=== PATIENT | male | born 1955 | race Caucasian/White ===

== ENCOUNTER 2023-02-04 09:04 | Inpatient (IN) ==
--- NOTE | 2023-01-14 10:08 | PAT Medication Instructions ---
Medication Instructions Date of Service January 14, 2023 Home Medications acetaminophen 650 mg tablet,extended release 650 mg PO QPM allopurinol 300 mg tablet 300 mg PO QAM ascorbic acid (vitamin C) 500 mg tablet (Vitamin C) 500 mg PO QAM cholecalciferol (vitamin D3) 25 mcg (1,000 unit) tablet (Vitamin D3) 100 mcg PO QAM clopidogrel 75 mg tablet 75 mg PO QAM coenzyme Q10 100 mg capsule (CoQ-10) 100 mg PO QAM hydrochlorothiazide 25 mg tablet 25 mg PO QAM metoprolol succinate 25 mg capsule sprinkle, ext. release 24 hr 25 mg PO QAM zinc 50 mg capsule 50 mg PO QAM psyllium husk 3.4 gram/5.4 gram oral powder (Metamucil) 1 tbsp PO QAM gabapentin 100 mg tablet 100 mg PO QPM indomethacin 75 mg capsule,extended release 50 mg PO UD PRN gout flare up lactobacillus combination no.4 3 billion cell capsule (Probiotic) 3,000 mmu cells PO QAM ASK your surgeon for instructions indomethacin 75 mg capsule,extended release 50 mg PO UD PRN gout flare up ASK your prescriber and surgeon clopidogrel 75 mg tablet 75 mg PO QAM STOP taking 2 weeks before surgery (or as soon as possible if surgery is within 2 weeks) coenzyme Q10 100 mg capsule (CoQ-10) 100 mg PO QAM DO NOT take the morning of surgery ascorbic acid (vitamin C) 500 mg tablet (Vitamin C) 500 mg PO QAM cholecalciferol (vitamin D3) 25 mcg (1,000 unit) tablet (Vitamin D3) 100 mcg PO QAM hydrochlorothiazide 25 mg tablet 25 mg PO QAM zinc 50 mg capsule 50 mg PO QAM psyllium husk 3.4 gram/5.4 gram oral powder (Metamucil) 1 tbsp PO QAM lactobacillus combination no.4 3 billion cell capsule (Probiotic) 3,000 mmu cells PO QAM Take morning of surgery With a small sip of water, OTHERWISE NOTHING TO EAT OR DRINK AFTER MIDNIGHT: allopurinol 300 mg tablet 300 mg PO QAM metoprolol succinate 25 mg capsule sprinkle, ext. release 24 hr 25 mg PO QAM Take evening before surgery acetaminophen 650 mg tablet,extended release 650 mg PO QPM gabapentin 100 mg tablet 100 mg PO QPM Other Notes If you have any questions please call us at [phone] or [phone] or [phone] or [phone]
--- NOTE | 2023-01-21 12:53 | Anesthesiology Consultation ---
Date of Service January 21, 2023 Assessment & Plan (1) Encounter for pre-operative examination: - awaiting surgeon ordered clearance. 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 Continue Plavix for minimum 6 months...cardiac clearance for possible back surgery. Patient is cleared for surgical intervention, but the problem is he has to stay on Plavix for minimum of 6 months due to his recent LAD stenting...would be cleared to stop Plavix 6-month levi, and needs to stay on aspirin 81 mg daily due to high risk of stent thrombosis...Return in about 1 year..." Chart Review Chart Review: Pending: Refer to Additional Notes / Consult section and Patient seen in Pre Admission Testing Teaching & Discussion Pre-Anesthesia Teaching/Discussion Notes: Instructed NPO after midnight before surgery, except medications with 15 cc of water. Medication instructions provided according to the PAT guidelines. History Surgery Operation Date: 02/04/23 07:45 Proposed Procedures p L2-S1 Decompression and Fusion - Vernon Montero DO Height/Weight Height: 5 ft 10 in Weight: 117.9 kg Allergies Allergy/AdvReac Type Severity Reaction Status Date / Time pravastatin AdvReac Unknown ARM PAIN Verified 01/14/23 08:29 Medications Home Medications Medication Instructions Recorded Confirmed Last Taken acetaminophen 650 mg 650 mg PO QPM 04/03/22 01/14/23 Unknown tablet,extended release allopurinol 300 mg tablet 300 mg PO QAM 04/03/22 01/14/23 Unknown ascorbic acid (vitamin C) 500 mg 500 mg PO QAM 04/03/22 01/14/23 Unknown tablet (Vitamin C) cholecalciferol (vitamin D3) 25 100 mcg PO QAM 04/03/22 01/14/23 Unknown mcg (1,000 unit) tablet (Vitamin D3) clopidogrel 75 mg tablet 75 mg PO QAM 04/03/22 01/14/23 Unknown coenzyme Q10 100 mg capsule 100 mg PO QAM 04/03/22 01/14/23 Unknown (CoQ-10) hydrochlorothiazide 25 mg tablet 25 mg PO QAM 04/03/22 01/14/23 Unknown metoprolol succinate 25 mg capsule 25 mg PO QAM 04/03/22 01/14/23 Unknown sprinkle, ext. release 24 hr zinc 50 mg capsule 50 mg PO QAM 04/03/22 01/14/23 Unknown psyllium husk 3.4 gram/5.4 gram 1 tbsp PO QAM 07/01/22 01/14/23 Unknown oral powder (Metamucil) gabapentin 100 mg tablet 100 mg PO QPM 01/14/23 01/14/23 Unknown indomethacin 75 mg 50 mg PO UD PRN gout flare up 01/14/23 01/14/23 Unknown capsule,extended release lactobacillus combination no.4 3 3,000 mmu cells PO QAM 01/14/23 01/14/23 Unknown billion cell capsule (Probiotic) Past Medical History Medical History (Updated 01/21/23 @ 12:58 by Tanika Roberts PA-C) Body aches after vaccination UPPER BODY/ARMS/SINCE RECEIVING COVID VACCINATIONS. PT HAS DISCUSSED THIS WITH PCP. CAD (coronary artery disease) 02/08/16, cardiac cath, 1 stent-[place] [employer]; [facility] cardiac [facility], 1 MARK stent-[place] [employer]nergy XD to LAD; [facility]u Dr. Cavazos, [facility] GERD (gastroesophageal reflux disease) rare History of COVID-23 JUL 2022 History of gout Hypertension controlled, stable per pt Myocardial Infarction 02/08/16, cardiac cath, 1 stent-[place] [employer]; [facility], cardiac cath, 1 MARK stent-[place] [employer] XD to LAD; [facility] f[facility]u Dr. Cavazos, [facility] Neck pain chronic, denies change or worsening sx intervention discussed/possible for future mild rom limitation on occ Shoulder pain, left chronic, denies change or worsening Sleep apnea MILD>NO DEVICE Spinal stenosis Patient denies h/o stroke, seizures, heart failure, DM, blood clots or blood transfusions. Exercise / Class Metabolic Activity II 4-5 Yardwork/Stairs/Walk up hill (denies chest discomfort or shortness of breath with 1 FOS) Past Family History Family History Other No family history of adverse response to anesthesia Past Surgical History Surgical History History of cardiac cath 02/08/16, cardiac cath, 1 stent-[place] [employer]; [facility] 11[facility]21, cardiac cath, 1 stent-[place] [employer] XD; [facility] f/u Dr. Cavazos, [facility] 12/2021>"NO STENT NEEDED" History of heart artery stent 02/08/16, cardiac cath, 1 stent-[place] [employer] Prem[employer]; [facility]21, cardiac cath, 1 stent-[place] [employer] XD; [facility] f/u Dr. Cavazos, [facility] History of left cataract surgery History of right cataract surgery History of tooth extraction most recent december 08 2022 - healed up Hx of colonoscopy Hx of rotator cuff surgery RT Past Anesthesia History No Hx of Anesthesia Complications and No Family Hx of Anesthesia Complications History of PONV No Hx of PONV and No Hx of Motion Sickness Social History Smoking Status: Never smoker tobacco type: smokeless tobacco Do You Dip or Chew Tobacco: No (HX , NOT FOR QUITE AWHILE) Hx Alcohol Use: Yes Alcohol type: beer alcohol intake frequency: other Alcohol Intake Frequency Comment: AVERAGE AT MOST 5-6 BEERS IN A YR Hx Substance Use: No substance use type: does not use Review of Systems Patient denies chest pain, shortness of breath, dyspnea on exertion, fever, chills, cough, wheezing, or palpitations. Physical Exam Vital Signs Vitals BP 144/80 P 55 TEMP 98 SP02 95% on RA RESP 18 Physical Full cervical extension range of motion without pain TMD < 3 finger breadths Mallampati Score 3 Dentition: several crowns, denies chipped or loose teeth, implants or bridges Lungs: normal respiratory effort. Clear throughout to auscultation, no adventitious breath sounds Cardiac: regular rate and rhythm, no murmurs noted Carotid arteries: negative bruit bilat Lab Results Anesthesia Preop Results Results Anesthesia Widget: WBC 6.46 K/ul (4.8-10.8) 01/21/23 Hgb 16.2 g/dl (14.0-18.0) 01/21/23 Hct 48.1 % (42.0-52.0) 01/21/23 Plt 257 K/uL (130-400) 01/21/23 Na 140 mmol/L (136-145) 01/21/23 K 3.6 mmol/L (3.5-5.1) 01/21/23 Cl 103 mmol/L (98-107) 01/21/23 CO2 31 mmol/L (21-32) 01/21/23 BUN 15 mg/dl (6-23) 01/21/23 Creat 0.97 mg/dl (0.6-1.4) 01/21/23 Glucose Level 78 mg/dl (70-99(Fasting)) 01/21/23 PT 11.0 Seconds (9.0-12.0) 01/21/23 PTT 27.3 Seconds (21.0-31.0) 01/21/23 INR 1.0 (0.9-1.1) 01/21/23 Urine Color Yellow 01/21/23 Urine Appearance Clear (Clear) 01/21/23 Urine pH 5.5 (4.5-7.5) 01/21/23 Urine Specific [place] 1.019 (1.000-1.030) 01/21/23 Urine Protein Negative (Negative) 01/21/23 Urine Glucose (UA) Negative (Negative) 01/21/23 Urine Ketones Negative (Negative) 01/21/23 Urine Blood Negative (Negative) 01/21/23 Urine Nitrite Negative (Negative) 01/21/23 Urine Bilirubin Negative (Negative) 01/21/23 Urine Urobilinogen Negative (Negative) 01/21/23 Urine Leukocyte Esterase Negative (Negative) 01/21/23 Blood Type O Positive 01/21/23 Antibody Screen NEGATIVE 01/21/23 Testing Electrocardiogram Date: 01/21/23 NSR with sinus arrhythmia, rate 63 bpm Chest X-Ray Date: 04/15/22 The lungs are clear. Cardiac silhouette is normal in size. No pleural effusions. No pneumothorax. IMPRESSION: No acute process. Echocardiogram Date: 05/26/22 EF 63% Borderline LVH Mild mitral regurgitation Mild tricuspid regurgitation Mildly enlarged RA Cardiac Catheterization Date: 12/25/21 Left main: angiographically normal LAD: mid and distal widely patent stents Cx: distal 80% stenosis RCA: ostial 50% stenosis, distal 50% stenosis COVID-19 Risk Screen Screening Information COVID-19 Screen Date: 01/21/23 Exposure 21 Days Family/Household +COVID Last 21 Days: No Exposure 10 Days Any COVID Exposure Last 10 Days: No Symptoms Last 10 Days Experienced COVID Sx Last 10 Days: No + COVID 0-90 Days COVID + in Last 0-90 Days: No
[~2023-02-04 09:04] MED LIST: ACETAMINOPHEN 500 MG TAB PO SCH; CeleBREX 200 MG CAP PO SCH; GABAPENTIN 300 MG CAP PO SCH; LR 15ML/HR IV SCH; ceFAZolin 2000MG 2,000 MG/15 ML SYR IV SCH
[2023-02-04] MEDS ORDERED: ePHEDrine sulfate 50 MG/ML AMP IV PRN (10:18)
[2023-02-04] MEDS ORDERED: ATROPINE SULFATE 0.1 MG/ML 10ML SYR IV PRN (10:18)
[2023-02-04] MEDS ORDERED: HYDROmorphone INJ 2 MG/ML SYR/VIAL IV PRN (10:18)
[2023-02-04] MEDS ORDERED: fentaNYL citrate PF 100 MCG/2 ML VIAL IV PRN (10:18)
[2023-02-04] MEDS ORDERED: ONDANSETRON INJ 2 MG/ML 2 ML VIAL IV PRN ×2 (10:18→15:37)
[2023-02-04] MEDS ORDERED: ROCURONIUM BROMIDE 10 MG/ML 5 ML VIAL IV ONE ×5 (10:22→14:44)
[2023-02-04] MEDS ORDERED: PROPOFOL IV EMULSION 10 MG/ML 20 ML VIAL IV ONE (10:22)
[2023-02-04] MEDS ORDERED: fentaNYL citrate PF 100 MCG/2 ML VIAL ONE (10:22)
--- NOTE | 2023-02-04 10:34 | History & Physical Bridge Note ---
Date of Service February 04, 2023 History & Physical Bridge Note I have examined the patient, reviewed the History & Physical and in the interval since the performance of the History & Physical I have noted the following changes of clinical significance: no changes noted
--- NOTE | 2023-02-04 10:35 | History & Physical Report ---
Date of Service February 04, 2023 Assessment & Plan (1) Neurogenic claudication due to lumbar spinal stenosis: Plan: L2-S1 decompression and fusion History of Present Illness Chief Complaint: Back and bilateral leg pain Primary Care Provider: Catracho Shah This is a 67-year-old male presents with chronic persistent back and bilateral knee pain and failing extensive course of nonoperative care is here for surgical invention. Allergies Allergy/AdvReac Type Severity Reaction Status Date / Time pravastatin AdvReac Unknown ARM PAIN Verified 02/04/23 09:46 Home Medications Medication Instructions Recorded Confirmed Type acetaminophen 650 mg 650 mg PO QPM 04/03/22 02/04/23 History tablet,extended release allopurinol 300 mg tablet 300 mg PO QAM 04/03/22 02/04/23 History ascorbic acid (vitamin C) 500 mg 500 mg PO QAM 04/03/22 02/04/23 History tablet (Vitamin C) cholecalciferol (vitamin D3) 25 100 mcg PO QAM 04/03/22 02/04/23 History mcg (1,000 unit) tablet (Vitamin D3) clopidogrel 75 mg tablet 75 mg PO QAM 04/03/22 02/04/23 History coenzyme Q10 100 mg capsule 100 mg PO QAM 04/03/22 02/04/23 History (CoQ-10) hydrochlorothiazide 25 mg tablet 25 mg PO QAM 04/03/22 02/04/23 History metoprolol succinate 25 mg capsule 25 mg PO QAM 04/03/22 02/04/23 History sprinkle, ext. release 24 hr zinc 50 mg capsule 50 mg PO QAM 04/03/22 02/04/23 History psyllium husk 3.4 gram/5.4 gram 1 tbsp PO QAM 07/01/22 02/04/23 History oral powder (Metamucil) gabapentin 100 mg tablet 100 mg PO QPM 01/14/23 02/04/23 History indomethacin 75 mg 50 mg PO UD PRN gout flare up 01/14/23 01/14/23 History capsule,extended release lactobacillus combination no.4 3 3,000 mmu cells PO QAM 01/14/23 02/04/23 History billion cell capsule (Probiotic) Past Med/Surg History Medical History (Updated 02/04/23 @ 10:35 by Vernon Montero DO) Body aches after vaccination UPPER BODY/ARMS/SINCE RECEIVING COVID VACCINATIONS. PT HAS DISCUSSED THIS WITH PCP. CAD (coronary artery disease) 02/08/16, cardiac cath, 1 stent-[employer]; [facility] 11/27/21, cardiac cath, 1 MARK stent-[employer] XD to LAD; [facility] f/u Dr. Cavazos, [facility] GERD (gastroesophageal reflux disease) rare History of COVID-23 JUL 2022 History of gout Hypertension controlled, stable per pt Myocardial Infarction 02/08/16, cardiac cath, 1 stent-[employer]; [facility] 11/27/21, cardiac cath, 1 MARK stent-[employer] XD to LAD; [facility] f/u Dr. Cavazos [facility] Neck pain chronic, denies change or worsening sx intervention discussed/possible for future mild rom limitation on occ Shoulder pain, left chronic, denies change or worsening Sleep apnea MILD>NO DEVICE Spinal stenosis Surgical History History of cardiac cath 02/08/16, cardiac cath, 1 stent-[employer]; [facility] 11/27/21, cardiac cath, 1 stent-[employer] XD; [facility] f/u [facility] Cavaz[facility], [facility]NO [facility]ENT NEED[facility]" History of heart artery stent 02/08/16, cardiac cath, 1 stent-[employer]; [facility] 11/27/21, cardiac cath, 1 stent-[employer] XD; [facility] f/u Dr. Cavazos, [facility] History of left cataract surgery History of right cataract surgery History of tooth extraction most recent december 08 2022 - healed up Hx of colonoscopy Hx of rotator cuff surgery RT Family History Other No family history of adverse response to anesthesia Social History Smoking Status: Never smoker Second Hand Exposure: No; Do You Dip or Chew Tobacco: No (HX , NOT FOR QUITE AWHILE); Hx Alcohol Use: Yes Alcohol type: beer Hx Substance Use: No Preferred Language: Luxembourgish Communication Ability: Effective Manager Intranet Required: No Beliefs That Will Affect Care: None and Sabianism Sabianism Beliefs: CONGREGATION Current Living Situation: Spouse and Family Current Living Situation Comment: AND MOTHER IN LAW Other Information That Helps Us Care for You: No Feels Safe at Home: Yes Assistive Devices: Hearing Aid - Bilateral and Other Assistive Devices Comment: READING GLASSES Physical Exam Physical Exam: Patient is alert and oriented Heart regular rhythm Lungs clear Results & Data Results & Data Vital Signs (Past 12 Hours) Vital Signs Temp Pulse Resp BP Pulse Ox O2 Del Method 02/04/23 09:51 36.6 C 55 L 20 163/83 H 95 Room Air
[2023-02-04] MEDS ORDERED: ONDANSETRON INJ 2 MG/ML 2 ML VIAL ONE (10:50)
[2023-02-04] MEDS ORDERED: DEXAMETHASONE SOD INJ 4 MG/ML VIAL ONE (10:50)
[2023-02-04] MEDS ORDERED: BUPIVACAINE/EPINEPHRINE 0.25% 1:200,000 30 ML VIAL ONE (10:51)
[2023-02-04] MEDS ORDERED: ceFAZolin 330 MG/ML 1 GM VIAL ONE (10:51)
[2023-02-04] MEDS ORDERED: HYDROmorphone INJ 2 MG/ML SYR/VIAL ONE (11:38)
[2023-02-04] MEDS ORDERED: SUGAMMADEX SODIUM 200 MG/2 ML VIAL IV ONE (14:00)
[2023-02-04] MEDS ORDERED: FLOSEAL HEMOSTATIC MATRIX 10ML TOP ONE (14:09)
--- NOTE | 2023-02-04 14:15 | Operative Report ---
Post Operative Report Pre & Post Diagnosis Operation Date: 02/04/23 11:05 Pre-Op Diagnosis: Spinal Stenosis, Lumbar Region with Neurogenic Cla Post-Op Diagnosis: Spinal Stenosis, Lumbar Region with Neurogenic Cla I identified the patient and participated in the time-out.: Yes Procedure Operation Date: 02/04/23 11:05 Actual Procedures #1 lumbar decompression bilaterally facetectomies and foraminotomies L1-L2, L2- L3, L3-L4 and L4-L5. #2 posterior spinal fusion L2-L5. #3 patient posterior segmental instrumentation L2-5. #4 interbody fusion L2-L3 L3-L4 L4-5. #5 placement of Spira cage 13 x 26 mm at L2-3, 12 x 26 mm at L3-L4 and 15 x 26 mm at L4-L5. #6 placement locally harvested morselized autograft and posterior gutters. #7 placement of I factor amount of the test in the interbody space and posterior lateral gutters. Surgeon Vernon Montero, DO [employer] Making Machine Operator Roberta Rutherford Estimated Blood Loss 1,250 Findings See Below The patient is 5 foot 10 weighing over 115 kg with a BMI in excess of 36. This combined with an EBL of greater than 1200 cc. Significant technical difficulty required deepest retractors and longer instruments in order to perform his procedure. This had at least 50% increased operative time. Specimens None Indications This is a 67-year-old male who presents above-mentioned diagnosis after failed course of nonoperative care is here for surgical invention. Description of Procedure Patient was met with identified informed consent obtained. Patient was then taken to the operative suite underwent patient placed in a prone position on the Jarad table top of the Pete frame. All bony promises well-padded eyes inspected to ensure no external pressure placed upon the. This point the lumbar spine was prepped and draped in normal sterile fashion. Sharp dissection with the assistance of Bovie cautery to form down to and exposing the lamina transverse processes of L2 L3-L4-L5 bilaterally. Bhat cephalad fashion complete laminectomy of L4 L3 L2 and partial laminectomy of L1 was performed including bilateral medial facetectomies and foraminotomies addressing severe spinal stenosis. Pedicle screws were then placed L2-L3 L4-5 bilaterally with assistance of fluoroscopy and the properly sized yuridia contoured and placed. Bilateral transforaminal approach on the right complete discectomy of L4-L5 was performed endplates curetted to subcortical being bone and a 15 x 26 mm Spira cage with I factor tapped in position. Then proceeded to L3-L4 and again by way of transforaminal approach and right complete discectomy performed endplates curetted to subcortical mean bone and again a 12 x 26 mm Spira cage with I fac tor tapped the position. Lastly proceeded L2-L3 and again bilateral transforaminal approach and right complete discectomy performed endplates guided to subcortically bone and a 13 x 26 mm Spira cage with I factor tapped the position. Rods were then locked in final position bilaterally but the transverse processes of L2-L3 L4-5 burred to subcortical bleeding bone. I factor bone of the test and locally harvested morselized autograft was placed in the posterior gutters. 15 round SHILPA drain inserted. Incision was then closed with 1 Vicryl the fascia 2-0 Vicryl subcutaneously and 4 Monocryl for final skin closure. Steri-Strips and sterile dressings placed. Patient awakened taken to PACU stable condition. Please note spinal cord monitoring visualized at the procedure no changes noted. Lastly Roberta Rutherford was present at the entire surgeon while the patient positioning complex portion of the surgery and final skin closure. I attest to the content of the Intraoperative Record and any orders documented therein. Any exceptions are noted below.
[2023-02-04] MEDS ORDERED: ePHEDrine sulfate 50 MG/ML AMP ONE (14:45)
[2023-02-04] MEDS ORDERED: LORazepam 0.5 MG TAB PO PRN (15:37)
[2023-02-04] MEDS ORDERED: DO NOT ADMINISTER PNEUMOCOCCAL VACCINE PRN (15:37)
[2023-02-04] MEDS ORDERED: HYDROmorphone INJ 1 MG/ML SYRINGE IV PRN (15:37)
[2023-02-04] MEDS ORDERED: DO NOT ADMINISTER FLU VACCINE PRN (15:37)
[2023-02-04] MEDS ORDERED: HYDROmorphone INJ 0.5 MG/0.5 ML SYR IV PRN (15:37)
[2023-02-04] MEDS ORDERED: SOD PHOSPHATE/SOD BIPHOSPHATE ENEMA 132 ML BTL PR PRN (15:37)
[2023-02-04] MEDS ORDERED: METOCLOPRAMIDE HCL INJ 5 MG/ML 2 ML VIAL IV PRN (15:37)
[2023-02-04] MEDS ORDERED: hydrOXYzine HCl 25 MG TAB PO PRN (15:37)
[2023-02-04] MEDS ORDERED: diphenhydrAMINE Capsule 25 MG CAP PO PRN (15:37)
[2023-02-04] MEDS ORDERED: ACETAMINOPHEN 500 MG TAB PO PRN (15:37)
[2023-02-04] MEDS ORDERED: FAMOTIDINE 20 MG TAB PO PRN (15:37)
[2023-02-04] MEDS ORDERED: ACETAMINOPHEN 1,000 MG/100 ML VIAL IV PRN (15:37)
[2023-02-04] MEDS ORDERED: PROMETHAZINE HCL 12.5 MG in SODIUM CHLORIDE 0.9% 50 ML IV PRN (15:37)
[2023-02-04] MEDS ORDERED: traMADol HCL 50 MG TABLET PO PRN (15:37)
[2023-02-04] MEDS ORDERED: NALOXONE HCL 0.4 MG/1 ML VIAL/CARP IV PRN (15:37)
[2023-02-04] MEDS ORDERED: bisacodyL 10 MG SUPP PR PRN (15:37)
[2023-02-04] MEDS ORDERED: LORazepam 2 MG/1 ML VIAL IV PRN (15:37)
[2023-02-04] MEDS ORDERED: MAGNESIUM HYDROXIDE SUSP 30 ML UDC PO PRN (15:37)
[2023-02-04] MEDS ORDERED: ONDANSETRON 4 MG OD TAB PO PRN (15:37)
[2023-02-04] MEDS ORDERED: ALUMINUM/MAGNESIUM SUSP 30 ML UDC PO PRN (15:37)
[2023-02-04] MEDS ORDERED: oxyCODONE HCL IR 5 MG TAB (IMMEDIATE RELEASE) PO PRN (15:37)
--- NOTE | 2023-02-04 16:07 | Anesthesiology Progress Note ---
Date of Service February 04, 2023 Anesthesia Post Procedure Vital Signs Vital Signs: Temp Pulse Pulse Resp BP Pulse Ox O2 Del Method 02/04/23 16:04 36.6 C 84 18 116/76 96 Nasal Cannula 02/04/23 15:35 36.7 C 79 18 103/67 96 Nasal Cannula 02/04/23 15:20 64 12 127/70 95 Nasal Cannula 02/04/23 15:10 36.6 C 80 12 118/60 97 Nasal Cannula 02/04/23 14:55 75 12 131/67 96 Oxymask 02/04/23 14:45 90 12 129/89 95 Oxymask 02/04/23 14:35 36.2 C L 86 18 120/90 94 Oxymask 02/04/23 09:51 36.6 C 55 L 20 163/83 H 95 Room Air O2 Flow Rate 02/04/23 16:04 2.5 02/04/23 15:35 2.5 02/04/23 15:20 2.5 02/04/23 15:10 2.5 02/04/23 14:55 4 02/04/23 14:45 6 02/04/23 14:35 8 02/04/23 09:51 Pain Intensity Bilateral Lower Back: Pain Intensity: 3 Transfer of Care Handoff Completed per policy Notes Mental Status: alert / awake / arousable and participated in evaluation Patient Amnestic to Procedure: Yes Nausea / Vomiting: adequately controlled Pain: adequately controlled Airway Patency, RR, SpO2: stable & adequate BP & HR: stable & adequate Hydration State: stable & adequate Anesthetic Complications: no major complications apparent and Pt Satisfied with anesthetic care
--- NOTE | 2023-02-04 16:20 | Fluoroscopy Report ---
FL lumbar spine 2-3V CLINICAL HISTORY: DECOMPRESSION AND FUSION COMPARISON STUDY: None. FLUOROSCOPY TIME: 38 seconds. Ka, r: 33.36 mGy FLUOROSCOPIC IMAGES: 2 FINDINGS: Fluoroscopy was provided during L2-L3, L3-L4 and L4-L5 discectomies with interbody spacer p lacement. Posterior decompression is noted. There are bilateral pedicle screws at the L2, L3, L4 and L5 levels with interconnecting rods. Hardware is intact. IMPRESSION: Fluoroscopy provided during multilevel discectomy, posterior decompression and L2-L5 fus ion. ACT 112: Negative or not required by law. Electronically signed by: Barrington Wagoner M.D. 02/04/2023 4:19 PM
--- NOTE | 2023-02-04 16:28 | Hospitalist Consultation ---
Date of Consultation February 04, 2023 Assessment & Plan (1) Neurogenic claudication due to lumbar spinal stenosis: Doing well so far post op check CBC, BMP in AM to assess for blood loss and renal function pain control, bowel regimen, drain management as per Ortho PT/OT continue home gabapentin which is also for cervical radiculopathy is on IV decadron as per Ortho (2) Hypertension: BPs controlled continue home metoprolol, HCTZ follow BMP (3) CAD (coronary artery disease): h/o MARK, most recently in 2021 1 year ago seen by his [employer] prior to surgery and advised continuing ASA but can hold Plavix-will check with Ortho about restarting no acut eissues continue metoprolol (4) Sleep apnea: mild, not on CPAP at home -monitor for nocturnal hypoxia with spot checks (5) History of gout: continue home allopurinol no acute issues (6) GERD (gastroesophageal reflux disease): not on meds at home watch for symptoms of recurrence with being on IV steroids Plan DVT proph-SCDs Dispo-continued stay on med/surg, hospitalist service will follow along History of Present Illness Reason for Consultation: Medical Management Requesting Physician: Dr. Montero Attending Physician: Vernon Montero, History of Present Illness Pt is a 67 yo male with a h/o CAD s/p MARK, HTN, HL,gout ,GERD, mild KELLY not on CPAP,and lumbar radiculopathy here post op from lumbar decompression and fusion. Doing wlel post op, denies CP, SOB, nausea, headache, abd pain. Has voided since surgery. Last BM this AM before surgery. Hospitalist service consulted for post op med management Allergies Allergy/AdvReac Type Severity Reaction Status Date / Time pravastatin AdvReac Unknown ARM PAIN Verified 02/04/23 09:46 Home Medications Medication Instructions Recorded Confirmed Type acetaminophen 650 mg 650 mg PO QPM 04/03/22 02/04/23 History tablet,extended release allopurinol 300 mg tablet 300 mg PO QAM 04/03/22 02/04/23 History ascorbic acid (vitamin C) 500 mg 500 mg PO QAM 04/03/22 02/04/23 History tablet (Vitamin C) cholecalciferol (vitamin D3) 25 100 mcg PO QAM 04/03/22 02/04/23 History mcg (1,000 unit) tablet (Vitamin D3) clopidogrel 75 mg tablet 75 mg PO QAM 04/03/22 02/04/23 History coenzyme Q10 100 mg capsule 100 mg PO QAM 04/03/22 02/04/23 History (CoQ-10) hydrochlorothiazide 25 mg tablet 25 mg PO QAM 04/03/22 02/04/23 History metoprolol succinate 25 mg capsule 25 mg PO QAM 04/03/22 02/04/23 History sprinkle, ext. release 24 hr zinc 50 mg capsule 50 mg PO QAM 04/03/22 02/04/23 History psyllium husk 3.4 gram/5.4 gram 1 tbsp PO QAM 07/01/22 02/04/23 History oral powder (Metamucil) gabapentin 100 mg tablet 100 mg PO QPM 01/14/23 02/04/23 History indomethacin 75 mg 50 mg PO UD PRN gout flare up 01/14/23 01/14/23 History capsule,extended release lactobacillus combination no.4 3 3,000 mmu cells PO QAM 01/14/23 02/04/23 History billion cell capsule (Probiotic) Patient History Medical History (Updated 02/05/23 @ 10:45 by Jennie Field MD) Body aches after vaccination UPPER BODY/ARMS/SINCE RECEIVING COVID VACCINATIONS. PT HAS DISCUSSED THIS WITH PCP. CAD (coronary artery disease) 02/08/16, cardiac cath, 1 stent-[employer] Promus Premiere; [facility] 11/27/21, cardiac cath, 1 MARK stent-[employer] Synergy XD to LAD; [facility] f/u Dr. Cavazos, [facility] GERD (gastroesophageal reflux disease) rare History of COVID-23 JUL 2022 History of gout Hypertension controlled, stable per pt Myocardial Infarction 02/08/16, cardiac cath, 1 stent-[employer] Promus Premiere; [facility] 11/27/21, cardiac cath, 1 MARK stent-[employer] Synergy XD to LAD; [facility] f[facility] Neck pain chronic, denies change or worsening sx intervention discussed/possible for future mild rom limitation on occ Shoulder pain, left chronic, denies change or worsening Sleep apnea MILD>NO DEVICE Spinal stenosis Surgical History History of cardiac cath 02/08/16, cardiac cath, 1 stent-[employer] Promus Premiere; [facility] 11/[facility]/21, cardiac cath, 1 stent-[employer] Synergy XD; [facility] f/u Dr. Cavazos, [facility] 12/2021>"NO STENT NEEDED" History of heart artery stent 02/08/16, cardiac cath, 1 stent-[employer] Promus Premiere; [facility] 11/27/21, cardiac cath, 1 stent-[employer] Synergy XD; [facility] f[facility]u Dr[facility] Cavaz[facility], [facility] History of left cataract surgery History of right cataract surgery History of tooth extraction most recent december 08 2022 - healed up Hx of colonoscopy Hx of rotator cuff surgery RT Family History Other No family history of adverse response to anesthesia Social History Smoking Status: Never smoker Second Hand Exposure: No; Do You Dip or Chew Tobacco: No (HX , NOT FOR QUITE AWHILE); Hx Alcohol Use: Yes Alcohol type: beer Hx Substance Use: No Preferred Language: Serbian Communication Ability: Effective [employer] Weaver Required: No Beliefs That Will Affect Care: None and Confucianism Confucianism Beliefs: MUSLIM Current Living Situation: Spouse and Family Current Living Situation Comment: AND MOTHER IN LAW Other Information That Helps Us Care for You: No Feels Safe at Home: Yes Assistive Devices: None Assistive Devices Comment: READING GLASSES Review of Systems Review of Systems: All systems reviewed & are unremarkable except as noted in HPI & below Physical Exam Constitutional: WD/WN, vitals as above Eyes: PERRL, conjunctivae normal, anicteric sclerae ENMT: external ear and nose normal, oropharynx normal Neck: trachea midline, no thyromegaly Respiratory: normal respiratory effort, lungs clear to auscultation Cardiovascular: RRR, no murmur, no edema Chest (Breasts): Chest: normal inspection of chest Gastrointestinal (Abdomen): normal bowel sounds, soft, nontender, no hepatosplenomegaly Musculoskeletal: Extremities: extremities normal to inspection; no cyanosis and no clubbing Skin: no rashes, warm and dry Neurologic: moves all extremities and awake; no focal motor deficits Psychiatric: A+Ox3, euthymic affect Lymphatic: no lymphedema Results & Data Results & Data Vital Signs (Past 12 Hours) Vital Signs Temp Pulse Pulse Resp BP Pulse Ox O2 Del Method 02/04/23 16:04 36.6 C 84 18 116/76 96 Nasal Cannula 02/04/23 15:35 36.7 C 79 18 103/67 96 Nasal Cannula 02/04/23 15:20 64 12 127/70 95 Nasal Cannula 02/04/23 15:10 36.6 C 80 12 118/60 97 Nasal Cannula 02/04/23 14:55 75 12 131/67 96 Oxymask 02/04/23 14:45 90 12 129/89 95 Oxymask 02/04/23 14:35 36.2 C L 86 18 120/90 94 Oxymask 02/04/23 09:51 36.6 C 55 L 20 163/83 H 95 Room Air O2 Flow Rate 02/04/23 16:04 2.5 02/04/23 15:35 2.5 02/04/23 15:20 2.5 02/04/23 15:10 2.5 02/04/23 14:55 4 02/04/23 14:45 6 02/04/23 14:35 8 02/04/23 09:51 Laboratory Results preop labs reviewed PG Care Time/CCT Total # of Minutes Spent Total Time Spent with Patient: Total time spent is greater than 50% in coordination of care (as documented) at patient's floor/unit and/or counseling patient: Coding Level of Care Code 68892 IN/OBS CONSULT LVL 3,45M Diagnoses Neurogenic claudication due to lumbar spinal stenosis M48.062 Hypertension I10 CAD (coronary artery disease) I25.10 Sleep apnea G47.30 History of gout Z87.39 GERD (gastroesophageal reflux disease) K21.9
[2023-02-04] MEDS: LACTATED RINGER'S 1,000 ML IV SCH ×2 (16:41→21:54)
[2023-02-04 20:13] LABS: Hemoglobin 14.4 g/dl (14.0-18.0)
[2023-02-04] MEDS: DOCUSATE SODIUM/SENNA 50/8.6MG TAB PO SCH (20:43)
[2023-02-04] MEDS: ceFAZolin 2000MG 2,000 MG/15 ML SYR IV SCH (20:43)
[2023-02-04] MEDS: GABAPENTIN 100 MG CAP PO SCH (20:43)
[2023-02-05] MEDS: LACTATED RINGER'S 1,000 ML IV SCH (04:48)
[2023-02-05] MEDS: ceFAZolin 2000MG 2,000 MG/15 ML SYR IV SCH (04:52)
[2023-02-05] MEDS: POLYETHYLENE (MIRALAX) 17 GM PACK PO SCH ×3 (04:52→17:40)
[2023-02-05] MEDS ORDERED: COUGH DROP (SUGAR FREE) LOZ 24 LOZ/1 BOX BUCCAL ONE (04:54)
[2023-02-05] MEDS ORDERED: LR 15ML/HR IV SCH (06:00)
[2023-02-05 07:13] LABS: Basophils # (auto) 0.01 K/uL (0-0.2); Basophils % (auto) 0.1 %; Hematocrit (blood only) 34.7 % (42.0-52.0); Hemoglobin 11.8 g/dl (14.0-18.0); Immature Granulocytes # (auto) 0.09 K/uL (0.01-0.20); Immature Granulocytes % (auto) 0.6 %; Lymphocytes # (auto) 1.65 K/uL (1.2-3.4); Lymphocytes % (auto) 10.6 %; Mean Platelet Volume 10.2 fL (9.4-12.4); Monocytes # (auto) 1.29 K/uL (0.11-0.59); Monocytes % (auto) 8.3 %; Neutrophils # (auto) 12.49 K/uL (1.40-6.50); Neutrophils % (auto) 80.4 %; Platelet Count 217 K/uL (130-400); RDW Coefficient of Variation 13.7 % (11.5-14.5); RDW Standard Deviation 47.1 fL (36.4-46.3); Red Blood Count 3.69 M/uL (4.70-6.10); White Blood Count 15.53 K/ul (4.8-10.8)
[2023-02-05 07:22] LABS: BUN Creatinine Ratio 17.9 (10-20); Calcium 9.1 mg/dl (8.6-10.3); Creatinine Clr Calc Pharmacy 66.1 ml/min; Est GFR (African American) 62.2 ml/min; Est GFR (Non-African American) 53.7 ml/min; Potassium 4.6 mmol/L (3.5-5.1)
[2023-02-05] MEDS: dexAMETHasone 6 MG in SYRINGE 0 ML IV SCH (08:34)
[2023-02-05] MEDS: hydroCHLOROthiazide 25 MG TAB PO SCH (08:35)
[2023-02-05] MEDS: ZINC SULFATE 220 MG CAPSULE PO SCH (08:36)
[2023-02-05] MEDS: ADVANCED PROBIOTIC 1250 MG CAPSULE PO SCH (08:36)
[2023-02-05] MEDS: CHOLECALCIFEROL 1,000 UNITS 25 MCG TAB PO SCH (08:37)
[2023-02-05] MEDS: allopurinoL 300 MG TAB PO SCH (08:37)
[2023-02-05] MEDS: ASCORBIC ACID 500 MG TAB PO SCH (08:37)
[2023-02-05] MEDS: METOPROLOL SUCC 25MG EXT REL TAB PO SCH (08:37)
[2023-02-05] MEDS ORDERED: NON-FORMULARY MEDICATION (Coenzyme Q10 [Coq-10] 100 mg Capsule) PO SCH (09:00)
--- NOTE | 2023-02-05 12:16 | Orthopedic Progress Note ---
Date of Service February 05, 2023 Assessment & Plan (1) Neurogenic claudication due to lumbar spinal stenosis: Plan: At this time continue physical therapy monitor his SHILPA operatively discharge home in next few days. Admission and Anticipated Discharge Date Admission Date: February 04, 2023 Subjective Back pain controlled leg pain improved Physical Exam Physical Exam: Patient is in bed. He is comfortable. Is constricted testing. Results & Data Vital Signs (Past 12 Hours) Vital Signs Temp Pulse Resp BP Pulse Ox O2 Del Method 02/05/23 11:27 36.6 C 72 18 135/70 94 Room Air 02/05/23 07:09 36.7 C 66 18 125/66 96 Room Air 02/05/23 03:35 36.5 C 63 18 161/76 H 95 Room Air
--- NOTE | 2023-02-05 12:17 | Hospitalist Progress Note ---
Date of Service February 05, 2023 Assessment & Plan (1) Neurogenic claudication due to lumbar spinal stenosis: Plan: Doing well so far post op pain control, bowel regimen, drain management as per Ortho PT/OT continue home gabapentin which is also for cervical radiculopathy is on IV decadron as per Ortho hgb drop to 11 from 14 and HD stable follow CBC in AM, EBL was 1250mL (2) Hypertension: Plan: BPs controlled continue home metoprolol, HCTZ follow BMP-bolt labeler bump up to 1.3 today (3) CAD (coronary artery disease): Plan: h/o MARK, most recently in 2021 1 year ago seen by his [employer] [facility] [facility]ist prior to surgery and advised continuing ASA but can hold Plavix- checked with Ortho about restarting ASA and he is ok with that for today no acute issues continue metoprolol not on statin due to intolerance restart ASA 81mg po daily and restart Plavix when ok with Ortho (4) Sleep apnea: Plan: mild, not on CPAP at home -monitor for nocturnal hypoxia with continuous pulse ox (5) History of gout: Plan: continue home allopurinol no acute issues (6) GERD (gastroesophageal reflux disease): Plan: not on meds at home watch for symptoms of recurrence with being on IV steroids Plan DVT proph-SCDs Dispo-continued stay on med/surg, hospitalist service will follow along Admission and Anticipated Discharge Date Admission Date: February 04, 2023 Subjective Feeling well, some pain in lower back, no pain down legs. Has some tingling in his feet still. Denies CP, SOB. Physical Exam Constitutional: WD/WN, vitals as above Neck: trachea midline, no thyromegaly Respiratory: normal respiratory effort, lungs clear to auscultation Cardiovascular: RRR, no murmur, no edema Chest (Breasts): Chest: normal inspection of chest Gastrointestinal (Abdomen): normal bowel sounds, soft, nontender, no hepatosplenomegaly Musculoskeletal: Extremities: extremities normal to inspection; no cyanosis and no clubbing Skin: no rashes, warm and dry Neurologic: moves all extremities and awake; no focal motor deficits Psychiatric: A+Ox3, euthymic affect Lymphatic: no lymphedema Results & Data Results & Data Vital Signs (Past 12 Hours) Vital Signs Temp Pulse Resp BP Pulse Ox O2 Del Method 02/05/23 11:27 36.6 C 72 18 135/70 94 Room Air 02/05/23 07:09 36.7 C 66 18 125/66 96 Room Air 02/05/23 03:35 36.5 C 63 18 161/76 H 95 Room Air Laboratory Results CBC, BMP reviewed PG Care Time/CCT Total # of Minutes Spent Total Time Spent with Patient: Total time spent is greater than 50% in coordination of care (as documented) at patient's floor/unit and/or counseling patient: Coding Level of Care Code 86005 SUB INP/OBS CARE 2/35MIN Diagnoses Neurogenic claudication due to lumbar spinal stenosis M48.062 Hypertension I10 CAD (coronary artery disease) I25.10 Sleep apnea G47.30 History of gout Z87.39 GERD (gastroesophageal reflux disease) K21.9
[2023-02-05] MEDS: ASPIRIN 81 MG ECTAB PO SCH (12:40)
[2023-02-05] MEDS: DOCUSATE SODIUM/SENNA 50/8.6MG TAB PO SCH (20:51)
[2023-02-05] MEDS: GABAPENTIN 100 MG CAP PO SCH (20:52)
[2023-02-06] MEDS: POLYETHYLENE (MIRALAX) 17 GM PACK PO SCH ×3 (00:04→12:33)
[2023-02-06 06:24] LABS: Basophils # (auto) 0.02 K/uL (0-0.2); Basophils % (auto) 0.1 %; Hematocrit (blood only) 31.6 % (42.0-52.0); Hemoglobin 10.9 g/dl (14.0-18.0); Immature Granulocytes # (auto) 0.18 K/uL (0.01-0.20); Lymphocytes # (auto) 2.24 K/uL (1.2-3.4); Lymphocytes % (auto) 11.9 %; Mean Corpuscular Hemoglobin 32.2 pg (25.0-34.0); Mean Corpuscular Hgb Conc 34.5 g/dL (32.0-36.0); Mean Corpuscular Volume 93.2 fL (80.0-100.0); Mean Platelet Volume 10.5 fL (9.4-12.4); Monocytes # (auto) 1.95 K/uL (0.11-0.59); Monocytes % (auto) 10.4 %; Neutrophils # (auto) 14.45 K/uL (1.40-6.50); Neutrophils % (auto) 76.6 %; Platelet Count 229 K/uL (130-400); RDW Coefficient of Variation 14.2 % (11.5-14.5); RDW Standard Deviation 47.8 fL (36.4-46.3); Red Blood Count 3.39 M/uL (4.70-6.10); White Blood Count 18.84 K/ul (4.8-10.8)
[2023-02-06 06:52] LABS: BUN Creatinine Ratio 24.8 (10-20); Calcium 9.7 mg/dl (8.6-10.3); Creatinine Clr Calc Pharmacy 84.4 ml/min; Est GFR (African American) 83.5 ml/min; Est GFR (Non-African American) 72.1 ml/min; Potassium 4.1 mmol/L (3.5-5.1)
[2023-02-06] MEDS: dexAMETHasone 6 MG in SYRINGE 0 ML IV SCH (08:42)
[2023-02-06] MEDS: ASCORBIC ACID 500 MG TAB PO SCH (08:44)
[2023-02-06] MEDS: ZINC SULFATE 220 MG CAPSULE PO SCH (08:45)
[2023-02-06] MEDS: allopurinoL 300 MG TAB PO SCH (08:45)
[2023-02-06] MEDS: METOPROLOL SUCC 25MG EXT REL TAB PO SCH (08:46)
[2023-02-06] MEDS: hydroCHLOROthiazide 25 MG TAB PO SCH (08:46)
[2023-02-06] MEDS: CHOLECALCIFEROL 1,000 UNITS 25 MCG TAB PO SCH (08:46)
[2023-02-06] MEDS: ADVANCED PROBIOTIC 1250 MG CAPSULE PO SCH (08:46)
[2023-02-06] MEDS: ASPIRIN 81 MG ECTAB PO SCH (08:46)
--- NOTE | 2023-02-06 10:18 | Discharge Summary ---
Date of Service February 06, 2023 Admission HPI Per Admitting Provider This is a 67-year-old male presents with chronic persistent back and bilateral knee pain and failing extensive course of nonoperative care is here for surgical invention. Principal Diagnosis Lumbar spinal stenosis with neurogenic claudication Discharge Data Allergies Allergy/AdvReac Type Severity Reaction Status Date / Time pravastatin AdvReac Unknown ARM PAIN Verified 02/04/23 09:46 Consultations 02/04/23 15:37 Consult Hospitalist Routine Procedures Performed Operation Date: 02/04/23 11:05 Actual Procedures p L2-S1 Decompression and Fusion, Spinal Cord Monitoring(Not Applicable) - Vernon Montero DO Ordered Studies 02/04/23 11:05 FL lumbar spine 2-3V Routine Hospital Course (1) Neurogenic claudication due to lumbar spinal stenosis: Patient went multilevel lumbar decompression fusion tolerated as well as taken to orthopedic for postoperative. Postop day 1 is up and ambulating progress postop day #2. SHILPA drain decreased appropriately. Excellent strength testing. Pain well controlled. Subsequent discharge home. Discharge orders and instructions found in chart for further review. Total Time Total Time Spent Total Time Spent (In Minutes): 20 minutes Discharge Plan Discharge Items Patient Disposition: Home - Self-Care Reason For Visit: POSTOP Discharge Diagnosis: Lumbar spinal stenosis with neurogenic claudication Activity: As commented below Non-emergency contact: Primary Care Provider Call non-emergency contact if: you have any medication questions Follow-up/Referrals: Catracho Shah [Primary Care Provider] - Diet: Regular Addtl Attending Provider Instructions: ACTIVITY RECOMMENDATIONS: SELF CARE INSTRUCTIONS AFTER THORACIC/LUMBAR FUSIONS 1. You may walk to your tolerance. It is good exercise for your legs and back. Expect some back and intermittent leg aches and pains. 2. You may perform "counter-top" level activities (make a sandwich, mayra with a project, etc.). 3. No bending or lifting of more than 10 pounds or back twisting of any nature (roll like a log when turning in bed). 4. You may ride in a car for 20-30 minutes at a time. No driving until after your first visit with your doctor. 5. Frequent changes of position and restricting sitting to 30 minutes at a time will help limit the amount of back spasms and stiffness you may experience. 6. You may discontinue the use of ambulatory aids (cane, crutches, etc.) once your strength and confidence allow. 7. You may trim line worker the shower and let water strike your incision when you arrive home at least once daily. Do not take a tub bath, sit in a hot tub or go into a swimming pool until after your first recheck in the office. SPECIAL CARE INSTRUCTIONS: VERY IMPORTANT TO READ AND REVIEW A. Your surgical incision has been closed with a cosmetic suture under the skin that will dissolve in about 6 weeks. In 14 days, you can use a pair of clean scissors and cut the suture that is left outside of the skin at the ends of your incision. 1. The small skin tapes can be removed 7 days after surgery if they have not fallen off by that point. 2. You may keep the wound open to air as much as possible to promote healing after post-op day number 5 unless told otherwise by your doctor. 3. If you think the wound looks like it is becoming infected (redness or worsening drainage) and/or you are experiencing fever, chill or worsening back pain and muscle spasms, contact the office so that we may evaluate you as soon as possible. B. Complications are uncommon, but please contact us if you have any signs or symptoms of: 1. wound infection (fever higher than 102.5 degrees F, redness, separation of wound, drainage, or increasing pain from the incision) 2. blood clots in legs (pain, swelling, redness and warmth in legs) 3. urinary tract infection (fever higher than 102.5 degrees F, burning upon urination or increased frequency of urination) 4. nerve problems (inability to walk on your toes or heels, numbness, loss of bowel or bladder control) 5. any other symptoms that concern you C. Please call the office at if you have any concerns or questions about your operation or recovery. D. No smoking! Smoking drastically decreases the chance of a solid fusion. E. Do not take any anti-inflammatory medications (Indocin, Advil, Motrin, Aspirin, Naprosyn, etc.) as these may inhibit the chance of a solid fusion. Tylenol is okay to take for pain. MANAGING PAIN AFTER SPINAL SURGERY 1. Narcotic medication is intended for short-term use and will be provided for surgical pain. Surgical pain usually lasts for a period of 4-6 weeks. Narcotic medication includes Percocet, Vicodin, Darvocet, Tylenol #3 or Lortab. 2. Longer-term pain is more appropriately treated with non-narcotic medication such as Tylenol ES. 3. Muscle spasm is not appropriately treated with narcotics. Muscle relaxers such as Soma, Flexeril or Skelaxin can be used along with Tylenol ES. 4. Remember that we all live with some "aches and pains". This is not unusual or uncommon after an injury or as we get older. a. Back pain is expected and may include muscle spasms for 4 to 6 weeks after surgery. The pain should gradually improve. If the pain worsens for no apparent reason, please contact the office. b. Intermittent leg pain may also be experienced and should not be concerned about unless it worsens for no apparent reason. If so, please contact the office. 5. We will provide appropriate medication within the normal guidelines of their prescribed use. We will also be very cautious and aware of potential abuse and extended duration of patients' medication needs. a. Pain medications are for your comfort and to assist with sleep and rest so that the tissue can heal. They are not provided in order to return to normal activity and should not be used through the day. To do so or worsening pain at night can result from ongoing tissue damage and development of tolerance to the prescribed medicine. 6. Please allow 2-3 days to process refills. Prescriptions will not be mailed but must be picked up at the office. FOLLOW UP VISIT: Keep your scheduled follow-up appointment. Any questions, please call the office at . Pending Studies at Discharge: No Stand-Alone Forms: [facility] [employer], Smoking Cessation Medications and DC Order Prescriptions: New tramadol 50 mg tablet 50 mg PO Q6H PRN (Reason: pain, moderate) Qty: 30 0RF oxycodone 5 mg tablet 5 mg PO DAILY PRN (Reason: pain) Qty: 30 0RF Continued indomethacin 75 mg Capsule, Extended Release 50 mg PO UD PRN (Reason: gout flare up ) gabapentin 100 mg Tablet 100 mg PO QPM Probiotic 3 billion cell Capsule 3,000 mmu cells PO QAM Rx Instructions: administer with a meal aspirin 81 mg Tablet,Delayed Release (Dr/Ec) 81 mg PO DAILY clopidogrel 75 mg Tablet 75 mg PO QAM acetaminophen 650 mg Tablet Extended Release 650 mg PO QPM Patient Comments: take in evening with gabapentin ascorbic acid (vitamin C) [Vitamin C] 500 mg Tablet 500 mg PO QAM allopurinol 300 mg Tablet 300 mg PO QAM hydrochlorothiazide 25 mg Tablet 25 mg PO QAM coenzyme Q10 [CoQ-10] 100 mg Capsule 100 mg PO QAM Patient Comments: haven't take it in awhile , probably a month zinc 50 mg Capsule 50 mg PO QAM cholecalciferol (vitamin D3) [Vitamin D3] 25 mcg (1,000 unit) Tablet 100 mcg PO QAM metoprolol succinate 25 mg Capsule,Sprinkle,Er 24hr 25 mg PO QAM Metamucil 3.4 gram/5.4 gram Powder 1 tbsp PO QAM Rx Instructions: mix into at least 8 oz of water or juice before administering Discharge Orders: Discharge Order (Routine); Ordered 02/06/23 Ordered By: Vernon Montero Admission Data Admit Date/Time: 02/04/23 14:21 Attending Provider: Vernon Montero Admit Provider: Vernon Montero Primary Care Provider: Catracho Shah Other Providers: Jennie Field
== END 2023-02-06 16:19 | disposition home or self-care (01) | DRG 455 ==
LOC: ASU 09:04 → 3E 14:21